=== PATIENT | male | born 1965 | race Two or more races ===

== ENCOUNTER 2017-10-12 06:46 | Emergency (ER) | payer SELFPAY ==
[~2017-10-12] VITALS: Ht 175.3 cm; Wt 127.0 kg
--- NOTE | 2017-10-12 07:04 | NUR ---
PT [facility] FROM [facility] C/C OF GENERALIZED WEAKNESS. PER EMS, PT WAS FOUND BY FRIEND LAYING ON FLOOR. PT STATES HE DRANK "2 BEERS". PT DENIES HAVING ANY PAIN. -TRAUMA, -KO. +ETOH ODOR NOTED COMING FROM PT. SKIN WNL. PT IS AAOX3, LETHARGIC AND SLEEPY, RESPONDS TO VOICE COMMANDS. PT ABLE TO AMBULATED FROM EMS GURNEY TO ER BED 14. IN FIELD BS 175, IN FIELD BP 141/70. NO S/S OF DISTRESS NOTED. PT PLACED ON GENERAL MACHINIST AND POX. PT SAFETY AND COMFORT MEASURES IN PLACE. AWAITING MD FOR EVAL.
--- NOTE | 2017-10-12 07:13 | NUR ---
REPORT GIVEN TO GIOVANNI LAKHANI FOR PETAR.
[2017-10-12] MEDS: IV NS 0.9% 1,000 ML BAG IV ONE (07:24)
[2017-10-12 07:49] LABS: BASOPHILS % (AUTO) 0.4 % (0.0-2.0); HEMATOCRIT 32 % (39-51); HEMOGLOBIN 10.7 g/dL (13.5-17.5); LYMPHOCYTES # (AUTO) 1.5 /CMM (0.8-4.8); LYMPHOCYTES % (AUTO) 23.7 % (20.0-44.0); MEAN CORPUSCULAR HEMOGLOBIN 28 PG (26.0-33.0); MEAN CORPUSCULAR HGB CONC 33 g/dl (31.0-36.0); MEAN CORPUSCULAR VOLUME 85 fL (80-96); MONOCYTES # (AUTO) 0.7 /CMM (0.1-1.30); MONOCYTES % (AUTO) 10.6 % (2.0-12.0); NEUTROPHILS # (AUTO) 4.1 /CMM (1.8-8.9); NEUTROPHILS % (AUTO) 64.3 % (43.0-81.0); PLATELET COUNT (AUTO) 204 /CMM (150-450); RDW COEFFICIENT OF VARIATION 14.6 (11.5-15.0); RED BLOOD CELL COUNT(AUTO) 3.78 MIL/uL (4.5-6.0); WHITE BLOOD COUNT (AUTO) 6.3 K/uL (4.3-11.0)
--- NOTE | 2017-10-12 07:55 | NUR ---
XRAY DONE AT BEDSIDE
[2017-10-12 07:57] LABS: CALCIUM, SERUM 8.2 mg/dL (8.5-10.1); CREATININE 0.9 mg/dL (0.6-1.3); POTASSIUM 3.4 mmol/L (3.5-5.1)
--- NOTE | 2017-10-12 08:01 | NUR ---
PT BACK FROM CT SCAN.
[2017-10-12 08:04] LABS: BILIRUBIN,DIRECT 0.1 mg/dL (0.0-0.2); BILIRUBIN,TOTAL 0.3 mg/dL (0.2-1.0); TOTAL PROTEIN, SERUM 6.4 g/dL (6.4-8.2)
[2017-10-12 08:12] LABS: THYROID STIMULATING HORMONE 0.977 uIU/mL (0.358-3.74)
[2017-10-12 08:15] LABS: INR 1.03 (0.87-1.13)
--- NOTE | 2017-10-12 12:35 | NUR ---
CALLED [facility] AND ASKED ABOUT THE PATIENTS LOST BELONGINGS. THEY STATED THAT THE ONLY BELONGINGS THE PATIENT HAD WAS HIS CELL PHONE.
--- NOTE | 2017-10-12 13:23 | NUR ---
IV removed. Catheter intact and site benign. Pressure and 4x4 applied to site. No bleeding noted.
--- NOTE | 2017-10-12 13:28 | NUR ---
Patient discharged to home in stable condition. Written and verbal after care instructions given. Patient verbalizes understanding of instruction.
[2017-10-12 13:29] VITALS: BP 128/74
== END 2017-10-12 13:30 | disposition home or self-care (01) ==
LOC: ER 06:47
DX: F11.10 Opioid abuse, uncomplicated (principal); F15.10 Other stimulant abuse, uncomplicated; F13.10 Sedative, hypnotic or anxiolytic abuse, uncomplicated; F19.10 Other psychoactive substance abuse, uncomplicated; R41.82 Altered mental status, unspecified; I10 Essential (primary) hypertension; E11.9 Type 2 diabetes mellitus without complications
CPT/HCPCS: 36415; 70450-TC; 71045-TC; 80048-TC; 80076-TC; 80305; 84443-TC; 85025-TC; 85730-TC; A4606; G0480; J7030; Z7610